=== PATIENT | female | born 1975 | race Two or more races ===

== ENCOUNTER 2023-02-04 22:14 | Emergency (ER) | payer OTHER ==
[~2023-02-04] VITALS: Ht 167.6 cm; Wt 74.8 kg
[2023-02-05 00:20] LABS: HEMATOCRIT 39.5 % (36.0-45.00); HEMOGLOBIN 12.8 g/dL (12.0-15.00); MEAN CELL VOLUME 87.4 fL (80.00-100.00); MEAN CORPUSCULAR HEMOGLOBIN 28.3 pg (27.00-32.0); MEAN CORPUSCULAR HGB CONC 32.4 g/dl (32.0-36.0); PLATELET COUNT 321 K/uL (150-450); RED BLOOD COUNT 4.52 M/uL (4.00-6.00); RED CELL DISTRIBUTION WIDTH 14.2 % (11.5-14.5)
[2023-02-05] MEDS ORDERED: DOLOGESIC 500-1 EACH PO (02:53)
[2023-02-05] MEDS ORDERED: ZYNCOF 20-400120 ML PO (02:53)
== END 2023-02-05 03:27 ==
LOC: ER 22:14
PROVIDERS: General Practice
DX: U07.1 COVID-19 (principal)

== ENCOUNTER 2023-12-24 09:35 | Emergency (ER) | payer OTHER ==
[~2023-12-24] VITALS: Ht 167.6 cm; Wt 77.1 kg
[~2023-12-24 09:35] MED LIST: DOLOGESIC 500-1 EACH PO; IPRAT-ALBUT 0.5-3 ML IH; MEDROLPACK PO; TUSSIN DM LIQU118 ML PO; ZITHROMAX200 MG PO; ZYNCOF 20-400120 ML PO
== END 2023-12-24 10:07 | disposition home or self-care (01) ==
LOC: ER 09:36
DX: R05.8 Other specified cough (principal)

== ENCOUNTER 2024-10-08 16:05 | Emergency (ER) | payer OTHER ==
[~2024-10-08] VITALS: Ht 162.6 cm; Wt 81.6 kg
[2024-10-08 16:14] VITALS: BP 142/72; O2SAT 98
[2024-10-08 19:29] LABS: BASO % 0.8 % (0.1-1.2); EOS # 0.37 (0.04-0.54); EOS % 3.1 % (0.7-7.0); LYMPH # 2.91 (1.18-3.74); LYMPH % 24.3 % (19.3-53.1); MEAN PLATELET VOLUME 10.80 fl (9.4-12.4); MONO # 0.36 (0.24-0.82); MONO % 3.0 % (4.7-12.5); NEUT # 8.20 (1.56-6.13); NEUT % 68.5 % (34.0-71.1); RED CELL DISTRIBUTION WIDTH 16.9 % (11.6-14.4)
[2024-10-08 20:10] LABS: ALT/SGPT 30.0 U/L (12-78); AST/SGOT 27.0 U/L (15-37); BILIRUBIN TOTAL 0.65 mg/dL (0.3-1.2); BUN CREA RATIO 8.0 (7.0-25.0); CREATININE SERUM 0.92 mg/dL (0.55-1.02); GFR 65.15; GLOBULINA 3.9 G/DL (2.4-3.5); GLUCOSE FASTING 97.0 mg/dL (65-100); OSMOLALITY SERUM 275.0 MOSM/KG (275-295)
== END 2024-10-08 20:59 | disposition home or self-care (01) ==
LOC: ER 16:26
PROVIDERS: General Practice
DX: M25.471 Effusion, right ankle (principal); M25.472 Effusion, left ankle